=== PATIENT | male | born 1940 | race Caucasian/White ===

== ENCOUNTER 2021-04-12 09:25 | Day surgery (SDC) | payer MEDICARE, BC ==
[~2021-04-12] VITALS: Ht 175.3 cm; Wt 93.4 kg
[2021-04-12] VITALS (8 sets, daily range): BP systolic 112–131; BP diastolic 54–78
[~2021-04-12 09:25] MED LIST: AMIO200T27 PO; ATOR20TA PO; CHON250C PO; DABI150C PO; DILT120C19 PO; FURO-150 PO; GLUC100017 PO; ISOS20TA15 PO; LEVO25TA7 PO; MAXIVISION PO; NIAC500T23 PO; OMEG10006 PO; SPIR25TA PO; eye promise PO; slow mag PO
[2021-04-12] MEDS ORDERED: LORazepam 0.5 MG tablet PO PRN (09:45)
[2021-04-12] MEDS ORDERED: normal saline 1,000 ML IV SCH (09:45)
[2021-04-12] MEDS ORDERED: diphenhydrAMINE 25mg capsule PO PRN (09:45)
[2021-04-12] MEDS ORDERED: nitroGLYCERIN-Tridil 50MG/D5W 250 ML IV ONE (12:09)
[2021-04-12] MEDS ORDERED: verapamil 2.5 mg/ml inj IV ONE (12:09)
[2021-04-12] MEDS ORDERED: fentaNYL/PF 50MCG/1 ML 2ML syringe ONE (12:09)
[2021-04-12] MEDS ORDERED: midazolam 1 mg/ML 2ml injection ONE (12:09)
[2021-04-12] MEDS ORDERED: iohexol 350 MG/1 ML 200ml bottle ONE (12:10)
[2021-04-12] MEDS ORDERED: heparin 1,000unit/ml 10ml vial 10 ML ONE (12:10)
[2021-04-12] MEDS ORDERED: LIDOcaine 1% (10mg/ml)w/preservative injection 20ml MDV ONE (12:12)
--- NOTE | 2021-04-12 12:30 | NUR ---
Pt left unit for procedure
[2021-04-12] MEDS ORDERED: ATOR40TA PO (12:32)
--- NOTE | 2021-04-12 14:00 | NUR ---
Pt ate 100% of lunch tray. 350ml oral fluid intake. Pt family at the bedside, visiting with patient.
[2021-04-12] MEDS ORDERED: proCHLORperazine 10 MG/2 ml inj IV PRN (14:20)
[2021-04-12] MEDS ORDERED: OXAZEpam 15mg capsule PO PRN (14:20)
[2021-04-12] MEDS ORDERED: normal saline 1000ml 1,000 ML IV SCH (14:20)
[2021-04-12] MEDS ORDERED: HYDROcodone/acetaminophen 5mg/325mg tablet PO PRN (14:20)
[2021-04-12] MEDS ORDERED: HYDROcodone/acetaminophen 10/325mg tab PO PRN (14:20)
[2021-04-12] MEDS ORDERED: ondansetron/PF 4mg/2ml inj IV PRN (14:20)
[2021-04-12] MEDS ORDERED: acetaminophen 325mg tablet PO PRN (14:20)
== END 2021-04-12 16:05 | disposition home or self-care (01) ==
LOC: SSTAY O 09:25
PROVIDERS: ATTEND Internal Medicine Interventional Cardiology
DX: R94.39 Abnormal result of other cardiovascular function study (principal); R07.89 Other chest pain; I25.118 Atherosclerotic heart disease of native coronary artery with other forms of angina pectoris; G47.33 Obstructive sleep apnea (adult) (pediatric); I10 Essential (primary) hypertension; I48.91 Unspecified atrial fibrillation; E03.9 Hypothyroidism, unspecified; K21.9 Gastro-esophageal reflux disease without esophagitis; E78.5 Hyperlipidemia, unspecified; Z79.899 Other long term (current) drug therapy; Z79.82 Long term (current) use of aspirin; Z95.5 Presence of coronary angioplasty implant and graft; Z85.46 Personal history of malignant neoplasm of prostate; Z88.0 Allergy status to penicillin; Z87.891 Personal history of nicotine dependence
CPT/HCPCS: 93005; 93458; 99152; C1769; C1894; J1644; J2001; J2250; J3010; J7030; Q0163; Q9967; 99153; A4620; A6258; J3490